=== PATIENT | female | born 1950 | race Caucasian/White ===

== ENCOUNTER 2020-02-10 08:59 | Day surgery (SDC) | payer MEDICARE ==
[~2020-02-10] VITALS: Ht 167.6 cm; Wt 67.0 kg
[~2020-02-10 08:59] MED LIST: BUPR300T94 PO; LOSA25TA25 PO; MULT-658 PO; [UNRECOGNIZED DRUG - OTHER] PO; lysine PO
[2020-02-10] MEDS ORDERED: CHLORHEXIDINE 15 ML UDC MM STA (09:41)
[2020-02-10] MEDS ORDERED: LACTATED RINGERS 1,000 ML IV SCH (09:41)
[2020-02-10] MEDS ORDERED: LIDOCAINE-MPF 1%, 2ML INFIL STA (09:41)
[2020-02-10 09:42] VITALS: BP 178/82
[2020-02-10] MEDS ORDERED: MIDAZOLAM 1 MG/ML, 2ML ONE (09:59)
[2020-02-10] MEDS ORDERED: FENTANYL PF 100 MCG/2ML ONE ×2 (10:00→11:23)
[2020-02-10] MEDS ORDERED: PROMETHAZINE 25 MG/ML, 1ML IVPush PRN (10:30)
[2020-02-10] MEDS ORDERED: HYDROcodone/APAP 7.5-325MG/15ML UDC PO PRN (10:30)
[2020-02-10] MEDS ORDERED: MEPERIDINE/PF 25MG/0.5ML IVPush PRN (10:30)
[2020-02-10] MEDS ORDERED: KETOROLAC 30 MG/1 ML IVPush PRN (10:30)
[2020-02-10] MEDS ORDERED: OXYcodone 5 MG/5 ML ORAL.SOL UDC PO PRN (10:30)
[2020-02-10] MEDS ORDERED: HYDROmorphone 1 MG/ML, 1ML INJ IVPush PRN (10:30)
[2020-02-10 10:34] LABS: ALANINE AMINOTRANSFERASE 20 U/L (12-78); ANION GAP 5 mmol/L (5-15); CALCIUM 9.5 mg/dL (8.5-10.1); CHLORIDE 114 mmol/L (98-107); CREATININE 1.13 mg/dL (0.55-1.02)
[2020-02-10 10:36] LABS: ALKALINE PHOSPHATASE 75 U/L (45-117); BILIRUBIN,TOTAL 0.4 mg/dL (0.2-1.0); TOTAL PROTEIN 7.4 g/dL (6.4-8.2)
[2020-02-10] MEDS ORDERED: PROPOFOL 10 MG/ML, 20ML ONE (10:49)
[2020-02-10] MEDS: FENTANYL PF 100 MCG/2ML IV PRN ×2 (11:25→11:38)
== END 2020-02-10 12:50 | disposition home or self-care (01) ==
LOC: OUT 08:59
PROVIDERS: ATTEND Orthopaedic Surgery
DX: M25.662 Stiffness of left knee, not elsewhere classified (principal); Z11.59 Encounter for screening for other viral diseases; M23.8X2 Other internal derangements of left knee; I10 Essential (primary) hypertension; F32.9 Major depressive disorder, single episode, unspecified; Z88.5 Allergy status to narcotic agent; Z96.642 Presence of left artificial hip joint; Z82.61 Family history of arthritis
CPT/HCPCS: 27570; 36415; 73560; 80053; 87635; 93005; J2250; J2704; J3010; J7120; 76000